=== PATIENT | male | born 1960 | race Caucasian/White ===

== ENCOUNTER 2017-02-08 00:13 | Emergency (ER) | payer OTHER ==
[~2017-02-08 00:13] MED LIST: AMLO5TAB22 PO; METH750T2 PO; NORC7.5T PO
--- NOTE | 2017-02-08 00:36 | PD ---
HPI Chief Complaint: Psychiatric Symptoms Time Seen by Provider: 00:31 Travel History International Travel<30 days: No Contact w/Intl Traveler<30days: No Traveled to known affect area: No History of Present Illness HPI 56-year-old white male presents to emergency department under Vill[place]ñor act by PD. According to Villaseñor act the patient had been drinking today. He states that he was going to shoot himself after drinking a bottle of [place]. The patient was upset after losing his job this week. He's been under increasing stress. His daughter has moved in with him because she is . He denies any toxic ingestions. He denies any recent illness. Patient states that he did not make these statements. He states that he is not truly suicidal. Denies any homicidal ideation. PFSH Past Medical History Narrative Medical Anxiety, depression, chronic back pain, colon cancer, hypertension, hepatitis C Arthritis: Yes Anxiety: Yes Depression: Yes Diminished Hearing: No Hepatitis: Yes (HEPATITS C ) Musculoskeletal: Yes (BACK PAIN S/P "EPIDURAL X 9") Tetanus Vaccination: < 5 Years Past Surgical History Narrative Surgical Tonsillectomy, Surgical resection of colon cancer Body Medical Devices: LIVER PROBLEMS Tonsillectomy: Yes (AGE 3) Other Surgery: Yes (HAD EPIDURAL X9) Social History Alcohol Use: Yes (1-2 BEERS/WEEKENDS) Tobacco Use: Yes (1 PACK PER DAY/SINCE AGE 14) Substance Use: No Allergies-Medications (Allergen,Severity, Reaction): Coded Allergies: Codeine (Verified Adverse Reaction, Mild, Nausea/Vomiting, 02/08/17) Reported Meds & Prescriptions Reported Meds & Active Scripts Active Reported Robaxin (Methocarbamol) 750 Mg Tab 750 Mg PO BID Amlodipine (Amlodipine Besylate) 5 Mg Tab 5 Mg PO DAILY Hydrocodone-Acetaminophen 7.5-325 mg Tab 1 Tab PO Q4H PRN Review of Systems Except as stated in HPI: all other systems reviewed are Neg Psychiatric: Positive: Depression, Mood Disorder, No: Anxiety, Suicidal Ideations, Disorder of Thought, Substance Abuse, Homicidal Ideation Physical Exam Narrative GENERAL: Well-nourished, well-developed patient. Appears heavily intoxicated. SKIN: Warm and dry. HEAD: Normocephalic and atraumatic. EYES: No scleral icterus. No injection or drainage. ENT: No nasal drainage noted. Mucous membranes pink. Airway patent. NECK: Supple, trachea midline. Moves head freely without obvious discomfort. CARDIOVASCULAR: Regular rate and rhythm without murmurs, gallops, or rubs. RESPIRATORY: Breath sounds equal bilaterally. No accessory muscle use. GASTROINTESTINAL: Abdomen soft, non-tender, nondistended. EXTREMITIES: No cyanosis or edema. BACK: Nontender without obvious deformity. No CVA tenderness. NEURO: Patient is alert and oriented. no sensorimotor deficits. Nonfocal. Slurred speech. PSYCH: No delusions. No auditory or visual hallucinations. Data Data Last Documented VS Vital Signs Date Time Temp Pulse Resp B/P Pulse Ox O2 Delivery O2 Flow Rate FiO2 02/08/17 00:43 97.8 80 18 118/72 95 Orders Complete Blood Count With Diff (02/08/17 00:30) Comprehensive Metabolic Panel (02/08/17 00:30) Psych Screen (02/08/17 00:30) Drug Screen, Random Urine (02/08/17 00:30) Alcohol (Ethanol) (02/08/17 00:30) Salicylates (Aspirin) (02/08/17 00:30) Tylenol (Acetaminophen) (02/08/17 00:30) Labs Laboratory Tests Test 02/08/17 01:00 White Blood Count 6.9 TH/MM3 Red Blood Count 4.58 MIL/MM3 Hemoglobin 15.8 GM/DL Hematocrit 44.8 % Mean Corpuscular Volume 97.8 FL Mean Corpuscular Hemoglobin 34.5 PG Mean Corpuscular Hemoglobin 35.2 % Concent Red Cell Distribution Width 12.8 % Platelet Count 181 TH/MM3 Mean Platelet Volume 9.1 FL Neutrophils (%) (Auto) 52.8 % Lymphocytes (%) (Auto) 35.3 % Monocytes (%) (Auto) 6.9 % Eosinophils (%) (Auto) 4.3 % Basophils (%) (Auto) 0.7 % Neutrophils # (Auto) 3.6 TH/MM3 Lymphocytes # (Auto) 2.4 TH/MM3 Monocytes # (Auto) 0.5 TH/MM3 Eosinophils # (Auto) 0.3 TH/MM3 Basophils # (Auto) 0.0 TH/MM3 CBC Comment DIFF FINAL Differential Comment Sodium Level 142 MEQ/L Potassium Level 3.9 MEQ/L Chloride Level 109 MEQ/L Carbon Dioxide Level 26.2 MEQ/L Anion Gap 7 MEQ/L Blood Urea Nitrogen 9 MG/DL Creatinine 0.77 MG/DL Estimat Glomerular Filtration 104 ML/MIN Rate Random Glucose 85 MG/DL Calcium Level 7.8 MG/DL Total Bilirubin 0.2 MG/DL Aspartate Amino Transf 41 U/L (AST/SGOT) Alanine Aminotransferase 63 U/L (ALT/SGPT) Alkaline Phosphatase 53 U/L Total Protein 7.2 GM/DL Albumin 3.8 GM/DL Salicylates Level 4.3 MG/DL Acetaminophen Level LESS THAN 2.0 MCG/ML Ethyl Alcohol Level 162 MG/DL MDM Medical Decision Making Medical Screen Exam Complete: Yes Emergency Medical Condition: Yes Medical Record Reviewed: Yes Interpretation(s) Laboratory Tests Test 02/08/17 01:00 White Blood Count 6.9 TH/MM3 Red Blood Count 4.58 MIL/MM3 Hemoglobin 15.8 GM/DL Hematocrit 44.8 % Mean Corpuscular Volume 97.8 FL Mean Corpuscular Hemoglobin 34.5 PG Mean Corpuscular Hemoglobin 35.2 % Concent Red Cell Distribution Width 12.8 % Platelet Count 181 TH/MM3 Mean Platelet Volume 9.1 FL Neutrophils (%) (Auto) 52.8 % Lymphocytes (%) (Auto) 35.3 % Monocytes (%) (Auto) 6.9 % Eosinophils (%) (Auto) 4.3 % Basophils (%) (Auto) 0.7 % Neutrophils # (Auto) 3.6 TH/MM3 Lymphocytes # (Auto) 2.4 TH/MM3 Monocytes # (Auto) 0.5 TH/MM3 Eosinophils # (Auto) 0.3 TH/MM3 Basophils # (Auto) 0.0 TH/MM3 CBC Comment DIFF FINAL Differential Comment Sodium Level 142 MEQ/L Potassium Level 3.9 MEQ/L Chloride Level 109 MEQ/L Carbon Dioxide Level 26.2 MEQ/L Anion Gap 7 MEQ/L Blood Urea Nitrogen 9 MG/DL Creatinine 0.77 MG/DL Estimat Glomerular Filtration 104 ML/MIN Rate Random Glucose 85 MG/DL Calcium Level 7.8 MG/DL Total Bilirubin 0.2 MG/DL Aspartate Amino Transf 41 U/L (AST/SGOT) Alanine Aminotransferase 63 U/L (ALT/SGPT) Alkaline Phosphatase 53 U/L Total Protein 7.2 GM/DL Albumin 3.8 GM/DL Salicylates Level 4.3 MG/DL Acetaminophen Level LESS THAN 2.0 MCG/ML Ethyl Alcohol Level 162 MG/DL Differential Diagnosis MDM: High Differential diagnoses: Schizophrenia, schizoaffective disorder, bipolar, anxiety, depression, adjustment reaction, mood disorder NOS, ODD, depressive disorder NOS, dementia, dementia with agitation, psychosis NOS, substance induced mood disorder, intermittent explosive disorder, Asperger syndrome, infection,electrolyte abnormality, malingering. Narrative Course Mental health screening discussed with the patient. Psychiatric screen ordered. The patient been medically cleared. This is medical clearance for psychiatric admission, alcohol induced mood disorder Diagnosis Primary Impression: Medical clearance for psychiatric admission Additional Impression: Alcohol-induced mood disorder Condition: Stable Cristhian Teague Feb 08, 2017 00:36
[2017-02-08 00:43] VITALS: BP 118/72; PULSE 80; RESP 18; TEMP 97.8; O2SAT 95
[2017-02-08] MEDS ORDERED: ROBA750T PO (00:54)
[2017-02-08] MEDS ORDERED: AMLO5TAB2 PO (00:54)
[2017-02-08] MEDS ORDERED: HYDR-3580 PO (00:54)
[2017-02-08 01:32] LABS: AUTOMATED NEUTROPHIL # 3.6 TH/MM3 (1.8-7.7); BASOPHIL % 0.7 % (0.0-2.0); EOSINOPHIL # 0.3 TH/MM3 (0-0.4); EOSINOPHIL % 4.3 % (0.0-4.0); HEMATOCRIT 44.8 % (39.0-51.0); HEMO FLAGS DIFF FINAL; LYMPH % 35.3 % (9.0-44.0); LYMPHOCYTE # 2.4 TH/MM3 (1.0-4.8); MEAN CELL VOLUME 97.8 FL (80.0-100.0); MEAN CORPUSCULAR HEMOGLOBIN 34.5 PG (27.0-34.0); MEAN CORPUSCULAR HGB CONC 35.2 % (32.0-36.0); MONO % 6.9 % (0.0-8.0); NEUT % 52.8 % (16.0-70.0); PLATELET COUNT 181 TH/MM3 (150-450); RED BLOOD COUNT 4.58 MIL/MM3 (4.50-5.90); RED CELL DISTRIBUTION WIDTH 12.8 % (11.6-17.2); WHITE BLOOD COUNT 6.9 TH/MM3 (4.0-11.0)
[2017-02-08 02:01] LABS: ALKALINE PHOSPHATASE 53 U/L (45-117); ALT (GPT) 63 U/L (12-78); TOTAL BILIRUBIN ADULT 0.2 MG/DL (0.2-1.0)
[2017-02-08 02:02] LABS: ANION GAP 7 MEQ/L (5-15); AST (GOT) 41 U/L (15-37); BICARBONATE 26.2 MEQ/L (21.0-32.0); BLOOD UREA NITROGEN 9 MG/DL (7-18); CHLORIDE 109 MEQ/L (98-107); GLOMERULAR FILTRATION RATE 104 ML/MIN (>89); SODIUM (NA) 142 MEQ/L (136-145)
[2017-02-08 02:14] LABS: POTASSIUM 3.9 MEQ/L (3.5-5.1)
[2017-02-08 02:15] LABS: ACETAMINOPHEN LESS THAN 2.0 MCG/ML (10.0-30.0)
[2017-02-08 08:05] VITALS: BP 124/76
--- NOTE | 2017-02-08 09:29 | PD.CONS ---
Provisional Diagnosis Admission Date Perry I. Alcohol use disorder, alcohol induced mood disorder, anxiety Perry II. Deferred Perry III. HTN, Perry IV. Recently lost his job Perry V. 55 History of Present Illness Service Psychiatry Consult Requested By Primary Care Physician Miguel Angel Winston M.D. HPI The patient is a 56-year-old man, unemployed, domicile with his daughter, divorce, with psychiatric history of anxiety, no hospitalizations, no previous suicidal attempts, alcohol use disorder, his and BuSpar 10 mg 3 times a day, prescribed by PCP, medical history of hypertension, who presents to emergency department under Vill[place]ñor act by PD. According to Villaseñor act the patient had been drinking yesterday. He states that he was going to shoot himself after drinking a bottle of [place]. The patient was upset after losing his job this week. He's been under increasing stress. His daughter has moved in with him because she is . He denies any toxic ingestions. He denies any recent illness. Patient states that he did not make these statements. He states that he is not truly suicidal. Denies any homicidal ideation. On psychiatric evaluation he denies depressive symptoms, he says that he has lost his job recently, but he is already looking for other jobs. Yesterday he was drinking alcohol, was intoxicated, he did not mean that he wanted to kill himself, he is wanted to make appointment. Patient says that he has to be there for his daughter who is right now. He denies suicidal or homicidal ideation, he denies visual and auditory hallucinations, patient is oriented 3, no agitation or aggressive behavior present. She is clinically sober, no withdrawal symptoms present or reported. Patient reports daily use of alcohol, he says that he drinks 2-3 beers every day. He denies previous symptoms of withdrawal, denies detox or rehabs in the past. He denies the use of illicit drugs. Collateral information from his brother, , was obtained, she says that yesterday she became scared, because he was stating that his brother to be than being a life without job. He clarifies that the patient doesn't have any psychiatric history, and he doesn't have any previous suicidal attempt, but she clarifies that he drinks alcohol everyday. She feels safe with discharged. Review of Systems Constitutional: DENIES: Diaphoretic episodes, Fatigue, Fever, Weight gain, Weight loss, Chills, Dizziness, Change in appetite, Night Sweats Endocrine: DENIES: Heat/cold intolerance, Polydipsia, Polyuria, Polyphagia Eyes: DENIES: Blurred vision, Diplopia, Eye inflammation, Eye pain, Vision loss , Photosensitivity, Double Vision Ears, nose, mouth, throat: DENIES: Tinnitus, Hearing loss, Vertigo, Nasal discharge, Oral lesions, Throat pain, Hoarseness, Ear Pain, Running Nose, Epistaxis, Sinus Pain, Toothache, Odynophagia Respiratory: DENIES: Apneas, Cough, Snoring, Wheezing, Hemoptysis, Sputum production, Shortness of breath Cardiovascular: DENIES: Chest pain, Palpitations, Syncope, Dyspnea on Exertion , PND, Lower Extremity Edema, Orthopnea, Claudication Gastrointestinal: DENIES: Abdominal pain, Black stools, Bloody stools, Constipation, Diarrhea, Nausea, Vomiting, Difficulty Swallowing, Anorexia Genitourinary: DENIES: Sexual dysfunction, Urinary frequency, Urinary incontinence, Urgency, Hematuria, Dysuria, Nocturia, Penile Discharge, Testicular Pain, Testicular Swelling Musculoskeletal: DENIES: Joint pain, Muscle aches, Stiffness, Joint Swelling, Back pain, Neck pain Integumentary: DENIES: Abnormal pigmentation, Nail changes, Pruritus, Rash Hematologic/lymphatic: DENIES: Bruising, Lymphadenopathy Immunologic/allergic: DENIES: Eczema, Urticaria Neurologic: DENIES: Abnormal gait, Headache, Localized weakness, Paresthesias, Seizures, Speech Problems, Tremor, Poor Balance Psychiatric: DENIES: Anxiety, Confusion, Mood changes, Depression, Hallucinations, Agitation, Suicidal Ideation, Homicidal Ideation, Delusions Past Family Social History Coded Allergies: Codeine (Verified Adverse Reaction, Mild, Nausea/Vomiting, 02/08/17) Reported Medications Methocarbamol (Robaxin)750 Mg Cpt173 Mg PO BID Ref 0 02/08/17 Amlodipine 5 Mg Tab5 Mg PO DAILY #30 TAB Ref 0 02/08/17 Hydrocodone-Acetaminophen 7.5-325 mg Tab1 Tab PO Q4H PRN (PAIN) Ref 0 02/08/17 Family History Patient denies psychiatric family history Social History Patient was born in [place], he lives in [facility] with his 19 years old daughter who was , he is now unemployed, he lost his job about week ago , he is divorce, his highest level of education is high school Patient's Strengths (min. 2) Family support Physical Exam No tremors, no withdrawal, no psychomotor agitation or retardation Vital Signs Vital Signs Date Time Temp Pulse Resp B/P Pulse Ox O2 Delivery O2 Flow Rate FiO2 02/08/17 08:05 88 16 124/76 99 02/08/17 00:43 97.8 Lab Results Labs Laboratory Tests Test 02/08/17 01:00 White Blood Count 6.9 TH/MM3 Red Blood Count 4.58 MIL/MM3 Hemoglobin 15.8 GM/DL Hematocrit 44.8 % Mean Corpuscular Volume 97.8 FL Mean Corpuscular Hemoglobin 34.5 PG Mean Corpuscular Hemoglobin 35.2 % Concent Red Cell Distribution Width 12.8 % Platelet Count 181 TH/MM3 Mean Platelet Volume 9.1 FL Neutrophils (%) (Auto) 52.8 % Lymphocytes (%) (Auto) 35.3 % Monocytes (%) (Auto) 6.9 % Eosinophils (%) (Auto) 4.3 % Basophils (%) (Auto) 0.7 % Neutrophils # (Auto) 3.6 TH/MM3 Lymphocytes # (Auto) 2.4 TH/MM3 Monocytes # (Auto) 0.5 TH/MM3 Eosinophils # (Auto) 0.3 TH/MM3 Basophils # (Auto) 0.0 TH/MM3 CBC Comment DIFF FINAL Differential Comment Sodium Level 142 MEQ/L Potassium Level 3.9 MEQ/L Chloride Level 109 MEQ/L Carbon Dioxide Level 26.2 MEQ/L Anion Gap 7 MEQ/L Blood Urea Nitrogen 9 MG/DL Creatinine 0.77 MG/DL Estimat Glomerular Filtration 104 ML/MIN Rate Random Glucose 85 MG/DL Calcium Level 7.8 MG/DL Total Bilirubin 0.2 MG/DL Aspartate Amino Transf 41 U/L (AST/SGOT) Alanine Aminotransferase 63 U/L (ALT/SGPT) Alkaline Phosphatase 53 U/L Total Protein 7.2 GM/DL Albumin 3.8 GM/DL Salicylates Level 4.3 MG/DL Acetaminophen Level LESS THAN 2.0 MCG/ML Ethyl Alcohol Level 162 MG/DL Mental Status Examination Appearance man, multiple visible tattoos, age appearing, hospital [facility], good hygiene, calm and cooperative Speech: Unremarkable Orientation: x3 Memory: Unremarkable Thought Process: Logical Thought Content: Unremarkable Hallucination Type: None Suicidal Ideation: No Previous Suicide Attempts: No Homicidal Ideation: No Previous Homicide Attempts: No Insight: Good Judgment: WNL Affect: Good Mood: Appropriate Motor Activity: Normal gait Assessment & Plan Problem List: (1) Alcohol-induced mood disorder Assessment & Plan: On psychiatric evaluation today patient reports anxiety, mild to moderate depressive symptoms related with reason loss of his job. Patient denies suicidal and homicidal ideation, he denies visual and auditory hallucinations. Patient is logical, coherent and relevant. Patient is future oriented, with clear goals about finding a new job. Protective factor for suicidality are in identifiable. Recent suicidal statements to his mother were more probably the result of acute alcohol intoxication, rather than a primary psychiatric illness decompensation. He does not meet criteria for psychiatric admission at this moment. Villaseñor act will be lifted. ICD Code: F10.94 Assessment & Plan Estimated LOS: Celestino Roberts MD Feb 08, 2017 09:28
== END 2017-02-08 08:06 | disposition home or self-care (01) ==
LOC: NEPD 00:13
DX: Z02.89 Encounter for other administrative examinations (principal); F10.94 Alcohol use, unspecified with alcohol-induced mood disorder; F41.9 Anxiety disorder, unspecified; I10 Essential (primary) hypertension; F17.200 Nicotine dependence, unspecified, uncomplicated; Z79.899 Other long term (current) drug therapy; Z86.59 Personal history of other mental and behavioral disorders; Z87.39 Personal history of other diseases of the musculoskeletal system and connective tissue; Z86.19 Personal history of other infectious and parasitic diseases
CPT/HCPCS: 80053; 80307; 85025; 99284